=== PATIENT | female | born 1990 | race Caucasian/White ===

== ENCOUNTER 2020-09-29 05:01 | Inpatient (IN) ==
[2020-09-29] MEDS ORDERED: Ringers Solution, Lactated 1,000 ML IVC ONE (05:14)
[2020-09-29] MEDS ORDERED: CeFAZolin 2,000 MG/120 ML BAG IVPB ONE (05:14)
[2020-09-29] MEDS ORDERED: Metoclopramide 10 MG/2 ML VIAL IVP ONE (05:14)
[2020-09-29] MEDS ORDERED: Oxytocin 20 units/ LR 1000 mL 20 UNIT/1,000 ML BAG IVC ONE (05:14)
[2020-09-29] MEDS ORDERED: Azithromycin 500 MG in 0.9 % Sodium Chloride 250 ML IVPB PRN (05:14)
[2020-09-29] MEDS ORDERED: Famotidine 20 MG/2 ML VIAL IVP ONE (05:14)
[2020-09-29] MEDS ORDERED: Ringers Solution, Lactated 1,000 ML IVC SCH (05:15)
[2020-09-29] MEDS ORDERED: Oxytocin 20 units/ LR 1000 mL 20 UNIT/1,000 ML BAG IVC SCH ×2 (05:15→11:00)
[2020-09-29 06:16] LABS: Basophils % 0.3 %; Eosinophils # 0.1 K/mcL (0.0-0.6); Eosinophils % 1.1 %; Immature Granulocytes % 0.7 % (0-4); Lymphocytes # 2.5 K/mcL (0.6-4.6); Lymphocytes % 22.9 %; Mean Corpuscular HGB Conc 34.2 g/dL (31.6-35.5); Mean Corpuscular Hemoglobin 31.6 pg (28.0-33.3); Mean Corpuscular Volume 92.2 fL (83.0-100.0); Mean Platelet Volume 9.1 fL (9.4-12.4); Monocytes # 0.7 K/mcL (0.0-1.3); Monocytes % 6.4 %; Neutrophils # 7.4 K/mcL (1.6-8.9); Platelet Count 188 K/mcL (140-400); Red Blood Count 4.12 M/mcL (3.82-4.97); Red Cell Distribution Width 12.3 % (11.5-14.5); Segmented Neutrophils % 68.6 %; White Blood Count 10.8 K/mcL (4.3-11.1)
[2020-09-29 06:55] LABS: Influenza A PCR Negative (Negative); Influenza B PCR Negative (Negative); Resp. Syncytial Virus PCR Negative (Negative)
[2020-09-29 06:56] LABS: SARS-CoV-2 by PCR (In House) Negative (Negative)
[2020-09-29] MEDS ORDERED: *HR* Midazolam HCl 2 MG/2 ML VIAL IVP PRN (06:59)
[2020-09-29] MEDS ORDERED: *HR* OxyCODONE Immed Rel 5 MG TABLET PO PRN (06:59)
[2020-09-29] MEDS ORDERED: *HR* HYDROmorphone PF 0.5 MG/0.5 ML SYRINGE IVP PRN (06:59)
[2020-09-29] MEDS ORDERED: Promethazine 6.25 MG in Water for inj. (sterile) 20 ML IVPB PRN (06:59)
[2020-09-29] MEDS ORDERED: EPHEDrine 50 MG/ML VIAL ONE (07:06)
[2020-09-29] MEDS ORDERED: *HR* Midazolam HCl 2 MG/2 ML VIAL ONE (07:06)
[2020-09-29] MEDS ORDERED: Ringers Solution, Lactated 1,000 ML ONE (07:07)
[2020-09-29] MEDS ORDERED: *HR* Morphine Sulfate/PF 10 MG/10 ML AMPUL ONE (07:08)
[2020-09-29] MEDS ORDERED: *HR* FentaNYL (PF) 100 MCG/2 ML VIAL ONE (07:09)
[2020-09-29] MEDS ORDERED: Acetaminophen IV 1,000 MG/100 ML BAG IVPB ONE (07:23)
[2020-09-29] MEDS ORDERED: Ketorolac 30 MG/ML VIAL ONE (08:19)
[2020-09-29 09:02] LABS: Amphetamine Screen,Urine Negative ng/mL (Cutoff=1000); Barbiturate Screen,Urine Negative ng/mL (Cutoff=200); Benzodiazepines Screen,Urine Negative ng/mL (Cutoff=200); Cannabinoid Screen,Urine Negative ng/mL (Cutoff = 50); Cocaine Screen,Urine Negative ng/mL (Cutoff= 300); Opiate Screen,Urine Negative ng/mL (Cutoff=300); Phencyclidine Screen,Urine Negative ng/mL (Cutoff=25)
[2020-09-29] MEDS ORDERED: Ibuprofen 600 MG TABLET PO PRN (11:00)
[2020-09-29] MEDS ORDERED: cephALEXin 500 MG CAPSULE PO SCH (11:00)
[2020-09-29] MEDS ORDERED: Metoclopramide 10 MG/2 ML VIAL IVP PRN (11:00)
[2020-09-29] MEDS ORDERED: Prenatal Vit/FA 1 EACH TABLET PO SCH (11:00)
[2020-09-29] MEDS ORDERED: *HR* HYDROcodone/Acet 5/325 mg TABLET PO PRN ×2 (11:00→13:30)
[2020-09-29] MEDS ORDERED: Rho Immune Globulin 1,500 UNIT SYRINGE IM ONE ×2 (11:00→17:37)
[2020-09-29] MEDS ORDERED: NON-FORMULARY MEDICATION 1 EACH EACH (Breast Pump [Breast Pump] 1 EACH Each) SCH (11:00)
[2020-09-29] MEDS ORDERED: NON-FORMULARY MEDICATION 1 EACH EACH (Prenatal Vit Calc,Iron,Folic [Prenatal Vitamins] 1 E PO SCH (11:00)
[2020-09-29] MEDS ORDERED: Acetaminophen 325 MG TABLET PO PRN (11:00)
[2020-09-29] MEDS ORDERED: Simethicone 80 MG TAB.CHEW PO PRN ×2 (11:00→17:36)
[2020-09-29] MEDS ORDERED: Ondansetron 4 MG/2 ML VIAL IVP SCH (11:00)
[2020-09-29] MEDS ORDERED: Ondansetron ODT 4 MG TAB.RAPDIS PO PRN (11:25)
[2020-09-29] MEDS ORDERED: Ibuprofen 600 MG TABLET PO SCH (12:00)
[2020-09-29] MEDS ORDERED: Ondansetron 4 MG/2 ML VIAL IVP PRN (15:29)
[2020-09-29] MEDS: cephALEXin 500 MG CAPSULE PO SCH ×2 (15:29→21:06)
[2020-09-29] MEDS: Ibuprofen 600 MG TABLET PO PRN ×2 (15:29→23:36)
[2020-09-29] MEDS: Ondansetron ODT 4 MG TAB.RAPDIS PO PRN (17:33)
[2020-09-29] MEDS: Acetaminophen 325 MG TABLET PO PRN (21:07)
[2020-09-30 03:23] LABS: Basophils % 0.1 %; Eosinophils # 0.1 K/mcL (0.0-0.6); Eosinophils % 0.3 %; Hemoglobin 11.8 g/dL (11.5-15.4); Immature Granulocytes % 0.5 % (0-4); Lymphocytes # 2.3 K/mcL (0.6-4.6); Mean Corpuscular HGB Conc 34.7 g/dL (31.6-35.5); Mean Corpuscular Hemoglobin 32.1 pg (28.0-33.3); Mean Corpuscular Volume 92.4 fL (83.0-100.0); Mean Platelet Volume 9.2 fL (9.4-12.4); Monocytes # 0.9 K/mcL (0.0-1.3); Monocytes % 4.8 %; Platelet Count 175 K/mcL (140-400); Red Blood Count 3.68 M/mcL (3.82-4.97); Segmented Neutrophils % 82.3 %
[2020-09-30 03:24] LABS: White Blood Count 19.4 K/mcL (4.3-11.1)
[2020-09-30] MEDS: Ibuprofen 600 MG TABLET PO PRN ×3 (05:21→20:33)
[2020-09-30] MEDS: Prenatal Vit/FA 1 EACH TABLET PO SCH (08:03)
[2020-09-30] MEDS: Acetaminophen 325 MG TABLET PO PRN ×3 (08:03→23:22)
[2020-09-30] MEDS: Ondansetron ODT 4 MG TAB.RAPDIS PO PRN (09:38)
[2020-09-30] MEDS: cephALEXin 500 MG CAPSULE PO SCH ×3 (09:38→20:33)
[2020-10-01] MEDS: Ibuprofen 600 MG TABLET PO PRN ×2 (03:04→09:01)
[2020-10-01] MEDS: Acetaminophen 325 MG TABLET PO PRN (05:43)
[2020-10-01 07:31] LABS: Basophils % 0.2 %; Eosinophils # 0.2 K/mcL (0.0-0.6); Eosinophils % 1.5 %; Hematocrit 37.3 % (35.3-44.9); Hemoglobin 12.4 g/dL (11.5-15.4); Immature Granulocytes % 0.5 % (0-4); Lymphocytes # 2.5 K/mcL (0.6-4.6); Lymphocytes % 18.5 %; Mean Corpuscular HGB Conc 33.2 g/dL (31.6-35.5); Mean Corpuscular Hemoglobin 31.2 pg (28.0-33.3); Mean Platelet Volume 8.9 fL (9.4-12.4); Monocytes # 0.7 K/mcL (0.0-1.3); Monocytes % 5.1 %; Neutrophils # 9.9 K/mcL (1.6-8.9); Platelet Count 203 K/mcL (140-400); Red Blood Count 3.97 M/mcL (3.82-4.97); Red Cell Distribution Width 12.4 % (11.5-14.5); Segmented Neutrophils % 74.2 %; White Blood Count 13.3 K/mcL (4.3-11.1)
[2020-10-01] MEDS: Prenatal Vit/FA 1 EACH TABLET PO SCH (07:37)
[2020-10-01] MEDS: cephALEXin 500 MG CAPSULE PO SCH (07:37)
[2020-10-01 07:59] VITALS: BP 111/77; PULSE 62; TEMP 98; O2SAT 99
== END 2020-10-01 11:08 | disposition home or self-care (01) | DRG 787 ==
LOC: 1NENULAB 05:01 → EDSTATUS 07:30 → 1NENUOBS 11:06
PROVIDERS: ADMIT Obstetrics & Gynecology; ATTEND Obstetrics & Gynecology